=== PATIENT | male | born 1970 | race Caucasian/White ===

== ENCOUNTER 2018-08-30 06:41 | Day surgery (SDC) | payer OTHER ==
[2018-08-30] MEDS ORDERED: EPINEPHrine INJ 1 MG/ML 1ML AMP (06:42)
[2018-08-30] MEDS ORDERED: dexameTHASONE 10 MG/1 ML VIAL PRES.FREE (J1100) (06:42)
[2018-08-30] MEDS ORDERED: ROPIvacaine 0.5% 30 ML INJECTION (J2795 PER 1MG) (06:42)
[2018-08-30 07:29] LABS: BEDSIDE GLUCOSE 124 MG/DL (70-105)
[2018-08-30] MEDS: LR 1,000 ML IV (07:38)
[2018-08-30] MEDS ORDERED: fentaNYL 100 MCG/2 ML INJECTION (J3010) As Ordered (07:42)
[2018-08-30] MEDS ORDERED: MIDAZOLAM INJ 2 MG/2 ML VIAL (J2250) As Ordered ×2 (07:42→07:50)
[2018-08-30] MEDS ORDERED: LIDOCAINE 2% INJ 100 MG/5 ML SDV (FOR ANES.) As Ordered (07:49)
[2018-08-30] MEDS ORDERED: PROPOFOL 200 MG/20 ML VIAL As Ordered (07:49)
[2018-08-30] MEDS ORDERED: fentaNYL 250 MCG/5 ML INJECTION (J3010) As Ordered (07:49)
[2018-08-30] MEDS ORDERED: ROCURONIUM BROMIDE 50 MG/5 ML VIAL As Ordered (07:49)
[2018-08-30] MEDS: MIDAZOLAM INJ 2 MG/2 ML VIAL (J2250) IV (08:01)
[2018-08-30] MEDS: fentaNYL 100 MCG/2 ML INJECTION (J3010) IV (08:01)
[2018-08-30] MEDS: ceFAZolin SOD 1 GM in D5W MINI-BAG PLUS 50 ML IV (08:27)
[2018-08-30] MEDS: EPINEPHrine 1MG/ML INJ 30ML MD-VIAL As Ordered (09:27)
[2018-08-30] MEDS ORDERED: ONDANSETRON 4MG/2ML VIAL (J2405) As Ordered (09:55)
[2018-08-30] MEDS ORDERED: NEOSTIGMINE 10 MG/10 ML VIAL (J2710) As Ordered (09:55)
[2018-08-30] MEDS ORDERED: KETOROLAC 60 MG/2 ML VIAL (J1885) As Ordered (09:55)
[2018-08-30] MEDS ORDERED: METOCLOPRAMIDE INJ 10MG/2ML VIAL (J2765) As Ordered (09:55)
[2018-08-30] MEDS ORDERED: GLYCOPYRROLATE INJ 0.2 MG/ML 2 ML VIAL As Ordered (09:55)
[2018-08-30] MEDS ORDERED: fentaNYL 100 MCG/2 ML INJECTION (J3010) IV (11:00)
[2018-08-30] MEDS ORDERED: NORCO, ANEXSIA 5/325MG TABLET (HYDROcodone/ACETAMINOPHEN) PO (11:00)
[2018-08-30] MEDS ORDERED: ONDANSETRON 4MG/2ML VIAL (J2405) IV (11:00)
[2018-08-30] MEDS ORDERED: LR 1,000 ML IV ×2 (11:00)
== END 2018-08-30 12:45 | disposition home or self-care (01) ==
LOC: M SDC 06:41
DX: M25.512 Pain in left shoulder (principal); X50.0XXD Overexertion from strenuous movement or load, subsequent encounter; Y99.0 Civilian activity done for income or pay; Y92.69 Other specified industrial and construction area as the place of occurrence of the external cause; E11.9 Type 2 diabetes mellitus without complications; Z79.82 Long term (current) use of aspirin; Z79.84 Long term (current) use of oral hypoglycemic drugs; Z92.3 Personal history of irradiation; Z79.899 Other long term (current) drug therapy; M79.622 Pain in left upper arm
CPT/HCPCS: 29823